=== PATIENT | female | born 1995 | race American Indian/Alaskan Native ===

== ENCOUNTER 2017-10-29 10:39 | Emergency (ER) | payer SELFPAY ==
--- NOTE | 2017-10-29 17:23 | Emergency Department Report ---
Chief Complaint: Fever Stated Complaint: FLU LIKE SYMPTOMS Time Seen by Provider: 10/29/17 17:14 - HPI History of Present Illness: Body aches, sore throat, chills, night sweats, shortness of breath, chest pain, productive cough, +sick contact cousin, threw up yesterday, decreased appetite. Did not get flu shot last year. Usually a daily THC smoker, no alcohol, no cigarettes. no PMHx. - ROS Review of Systems: As per HPI - Exam Vital Signs: Vital Signs 10/29/17 11:46 Temperature 99.5 F Pulse Rate 107 H Respiratory 16 Rate Blood Pressure 113/73 Blood Pressure 113/73 [Right] O2 Sat by Pulse 100 Oximetry Physical Exam: Mild distress, NCAT, PERRL EOMI, some wheezing and rhonchi appreciated in the left lower quadrant MSE screening note: Focused history and physical exam performed. Due to findings the following was ordered: CXR, Rapid Strep, CBC, BMP, HCG ED Disposition for MSE Condition: Stable Referrals: PRIMARY CARE, [Primary Care Provider] - 3-5 Days
[2017-10-29 17:38] LABS: Basophils # (Auto) 0.1 K/mm3 (0.0-0.1); Basophils % (Auto) 0.6 % (0.0-1.8); Hemoglobin 13.4 gm/dl (10.1-14.3); Lymphocytes # (Auto) 0.9 K/mm3 (1.2-5.4); Lymphocytes % (Auto) 8.5 % (13.4-35.0); Mean Corpuscular HGB Conc 33 % (30-34); Mean Corpuscular Hemoglobin 27 pg (28-32); Mean Corpuscular Volume 84 fl (79-97); Monocytes # (Auto) 1.6 K/mm3 (0.0-0.8); Monocytes % (Auto) 15.4 % (0.0-7.3); Platelet Count 186 K/mm3 (140-440); Red Blood Count 4.87 M/mm3 (3.65-5.03); Red Cell Distribution Width 14.7 % (13.2-15.2)
[2017-10-29 18:02] LABS: BUN/Creatinine Ratio 10; Blood Urea Nitrogen 7 mg/dL (7-17); Calcium 9.1 mg/dL (8.4-10.2); Hemolysis Index 4
[2017-10-29] MEDS ORDERED: ZOFRAN ODT PO ONE (19:26)
[2017-10-29] MEDS ORDERED: TYLENOL PO ONE (19:26)
--- NOTE | 2017-10-29 19:29 | Emergency Department Report ---
- General Chief Complaint: Fever Stated Complaint: FLU LIKE SYMPTOMS Time Seen by Provider: 10/29/17 17:14 Source: patient Mode of arrival: Ambulatory Limitations: No Limitations - History of Present Illness Initial Comments: 22-year-old female past medical history none presents with complaint of 2 days of sore throat cough runny nose fever chills and body aches. Pt is awake alert and oriented 3. Sick contacts at home. Patient states she has had cough with some sputum. MD Complaint: fever, cough, sore throat Onset/Timin -: days(s) Severity: moderate Quality: aching Consistency: intermittent Improves With: nothing Worsens With: nothing Context: sick contacts Associated Symptoms: fever, chills, cough Treatments Prior to Arrival: none - Related Data Previous Rx's Medication Instructions Recorded Last Taken Type Acetaminophen/Codeine [Tylenol #3] 1 tab PO Q6H PRN #9 tab 05/19/16 Unknown Rx Amoxicillin/Potassium Clav 1 each PO BID #20 tablet 10/29/17 Unknown Rx [Augmentin 875-125 Tablet] Ibuprofen [Motrin] 400 mg PO Q8H PRN #20 tablet 10/29/17 Unknown Rx Ondansetron [Zofran Odt] 4 mg PO Q8H PRN #12 tab.rapdis 10/29/17 Unknown Rx Oseltamivir [Tamiflu] 75 mg PO BID #10 cap 10/29/17 Unknown Rx Phenylephrine/Dm/Acetaminop/GG 10 ml PO Q6H PRN #1 liquid 10/29/17 Unknown Rx [Mucinex Obsg-Vmx-Zvwsjrrvnh Lq] Allergies Allergy/AdvReac Type Severity Reaction Status Date / Time No Known Allergies Allergy Unverified 05/19/16 18:28 ED Review of Systems ROS: Stated complaint: FLU LIKE SYMPTOMS Other details as noted in HPI Constitutional: fever, malaise. denies: chills Eyes: denies: eye pain, eye discharge, vision change ENT: throat pain. denies: ear pain Respiratory: cough. denies: shortness of breath, wheezing Cardiovascular: denies: chest pain, palpitations Endocrine: no symptoms reported Gastrointestinal: denies: abdominal pain, nausea, diarrhea Genitourinary: denies: urgency, dysuria, discharge Musculoskeletal: denies: back pain, joint swelling, arthralgia Skin: denies: rash, lesions Neurological: denies: headache, weakness, paresthesias Psychiatric: denies: anxiety, depression Hematological/Lymphatic: denies: easy bleeding, easy bruising ED Past Medical Hx - Past Medical History Previous Medical History?: Yes Hx Psychiatric Treatment: Yes (depression) Hx Asthma: Yes (last attack 1.5yrs ago) - Surgical History Past Surgical History?: No - Social History Smoking Status: Never Smoker Substance Use Type: Marijuana - Medications Home Medications: Home Medications Medication Instructions Recorded Confirmed Last Taken Type Acetaminophen/Codeine [Tylenol #3] 1 tab PO Q6H PRN #9 tab 05/19/16 Unknown Rx Amoxicillin/Potassium Clav 1 each PO BID #20 tablet 10/29/17 Unknown Rx [Augmentin 875-125 Tablet] Ibuprofen [Motrin] 400 mg PO Q8H PRN #20 tablet 10/29/17 Unknown Rx Ondansetron [Zofran Odt] 4 mg PO Q8H PRN #12 tab.rapdis 10/29/17 Unknown Rx Oseltamivir [Tamiflu] 75 mg PO BID #10 cap 10/29/17 Unknown Rx Phenylephrine/Dm/Acetaminop/GG 10 ml PO Q6H PRN #1 liquid 10/29/17 Unknown Rx [Mucinex Shna-Tef-Fsvihujaju Lq] ED Physical Exam - General Limitations: No Limitations General appearance: alert, in no apparent distress - Head Head exam: Present: atraumatic, normocephalic - Eye Eye exam: Present: normal appearance, PERRL, EOMI - ENT ENT exam: Present: mucous membranes moist - Neck Neck exam: Present: normal inspection - Respiratory Respiratory exam: Present: rhonchi (possible rhonchi on auscultation). Absent: respiratory distress - Cardiovascular Cardiovascular Exam: Present: regular rate, normal rhythm. Absent: systolic murmur, diastolic murmur, rubs, gallop - GI/Abdominal GI/Abdominal exam: Present: soft, normal bowel sounds - Extremities Exam Extremities exam: Present: normal inspection - Back Exam Back exam: Present: normal inspection - Neurological Exam Neurological exam: Present: alert, oriented X3 - Psychiatric Psychiatric exam: Present: normal affect, normal mood - Skin Skin exam: Present: warm, dry, intact, normal color. Absent: rash ED Course Vital Signs 10/29/17 10/29/17 10/29/17 11:46 19:38 20:07 Temperature 99.5 F 99.4 F Pulse Rate 107 H 84 Respiratory 16 16 18 Rate Blood Pressure 113/73 Blood Pressure 113/73 117/52 [Right] O2 Sat by Pulse 100 100 Oximetry ED Medical Decision Making - Lab Data Result diagrams: 10/29/17 17:27 10/29/17 17:27 - Medical Decision Making A/P: Flulike illness, URI 1- pt signed out AGAINST MEDICAL ADVICE. Stated she needed to leave and could not wait for chest x-ray or urine tests. I advised patient that if her symptoms worsened if she cannot tolerate anything by mouth or if she has persistent fevers above 100.4 Fahrenheit or feels lethargic to return to the ED immediately. Patient stated she understood. This conversation was witnessed by glass crusher Gwen. 2-I offered patient Tamiflu. As patient does have some coarse breath sounds will cover empirically with Augmentin which can be used to treat community- acquired pneumonia and also covers MRSA. I made this choice because it is known that post-influenza patients may develop severe bacterial pneumonia secondary to staph. Albuterol when necessary Mucinex when necessary Zofran when necessary Motrin when necessary 3-follow up with primary care 4-strep swab negative Critical care attestation.: If time is entered above; I have spent that time in minutes in the direct care of this critically ill patient, excluding procedure time. ED Disposition Clinical Impression: Flu-like symptoms, Left against medical advice Upper respiratory infection Qualifiers: URI type: unspecified URI Qualified Code(s): J06.9 - Acute upper respiratory infection, unspecified Disposition: DC- TO HOME OR SELFCARE Is pt being admited?: No Does the pt Need Aspirin: No Condition: Stable Instructions: Upper Respiratory Infection (ED), Viral Syndrome (ED), Influenza (ED) Prescriptions: Amoxicillin/Potassium Clav [Augmentin 875-125 Tablet] 1 each PO BID #20 tablet Ibuprofen [Motrin] 400 mg PO Q8H PRN #20 tablet PRN Reason: Fever Ondansetron [Zofran Odt] 4 mg PO Q8H PRN #12 tab.rapdis PRN Reason: Nausea Oseltamivir [Tamiflu] 75 mg PO BID #10 cap Phenylephrine/Dm/Acetaminop/GG [Mucinex Dzhz-Fsf-Vsalrncsfm Lq] 10 ml PO Q6H PRN #1 liquid PRN Reason: Cough Referrals: [facility] [Outside] - 3-5 Days [facility] [Outside] - 3-5 Days Forms: AMA Form Time of Disposition: 20:20
[2017-10-29 19:40] VITALS: BP 117/52
== END 2017-10-29 20:31 | disposition left against medical advice (07) ==
LOC: ED 10:39
DX: J06.9 Acute upper respiratory infection, unspecified (principal); J45.909 Unspecified asthma, uncomplicated; F32.9 Major depressive disorder, single episode, unspecified
CPT/HCPCS: 36415; 80048; 85025; 87430; 99283; Q0162